=== PATIENT | male | born 2000 | race African-American/Black ===

== ENCOUNTER 2018-01-01 18:53 | Emergency (ER) | payer OTHER | END 2018-01-01 20:25 | disposition home or self-care (01) | LOC: FTE 18:53 | DX: S41.151A Open bite of right upper arm, initial encounter (principal); S41.152A Open bite of left upper arm, initial encounter; W50.3XXA Accidental bite by another person, initial encounter; Y92.9 Unspecified place or not applicable | CPT/HCPCS: 99283; Z7502 ==